=== PATIENT | female | born 1955 | race Caucasian/White ===

== ENCOUNTER → 2016-12-02 | Outpatient (CLI) | payer OTHER ==
[~2016-12-02] MED LIST: CARB1TAB2 PO; GABA-585 PO; HYDR25TA9 PO; LOSA1TAB17 PO; LOVA20TA2 PO; METF500T4 PO
--- NOTE | 2016-12-02 17:10 | RAD ---
DATE: 12/02/2016 EXAM: DIGITAL SCREEN BILAT W/CAD HISTORY: Screening study. COMPARISON: 11/22/2014 This study was interpreted with the benefit of Computerized Aided Detection (CAD). The breast parenchyma shows scattered fibroglandular densities. Breast parenchyma level B. FINDINGS: Digital MLO and CC mammograms of both breasts were obtained. Comparison study is dated 11/22/2014. The breast parenchyma is composed of scattered fibroglandular densities which can obscure a lesion on mammography (breast density code B). Benign-appearing calcifications are seen within both breasts. No spiculated mass is seen. No malignant appearing calcification is noted. No area of architectural distortion is seen. Since the previous examination there has been no significant interval change. IMPRESSION: BI-RADS Category 1, negative. There is no mammographic evidence of malignancy. Routine yearly screening mammography is recommended for follow-up. BI-RADS CATEGORY: 1 NEGATIVE RECOMMENDED FOLLOW-UP: 12M 12 MONTH FOLLOW-UP PQRS compliance statement: Patient information was entered into a reminder system with a target due date 12/02/2017 for the next mammogram. Mammography is a sensitive method for finding small breast cancers, but it does not detect them all and is not a substitute for careful clinical examination. A negative mammogram does not negate a clinically suspicious finding and should not result in delay in biopsying a clinically suspicious abnormality. "Our facility is accredited by the [employer] Mammography [employer]."
== END | disposition home or self-care (01) ==
LOC: MAMMO 08:50
PROVIDERS: ATTEND Family Medicine
DX: Z12.31 Encounter for screening mammogram for malignant neoplasm of breast (principal)
CPT/HCPCS: G0202; 77067

== ENCOUNTER → 2018-04-01 | Outpatient (CLI) | payer OTHER ==
[~2018-04-01] MED LIST changes: +HYDR-2145 PO; -HYDR25TA9 PO; -LOSA1TAB17 PO; +LOSA1TAB22 PO; +METF500T16 PO; -METF500T4 PO
--- NOTE | 2018-04-01 09:05 | KCIC ---
PQRS Compliance Statement: One or more of the following individualized dose reduction techniques were utilized for this examination: 1. Automated exposure control 2. Adjustment of the mA and/or kV according to patient size 3. Use of iterative reconstruction technique CT low-dose lung screening April 01, 2018 INDICATION: Smoker for 40+ years. Quit 5 years ago. COMPARISON: CT chest November 21, 2015. TECHNIQUE: Multiple axial CT images of the chest were obtained utilizing low-dose noncontrast technique. Coronal and sagittal reformats are provided. FINDINGS: The thyroid gland is normal in appearance. No pathologically enlarged axillary, mediastinal or hilar lymph nodes are identified within the limitations of a noncontrast examination. Heart size is within normal limits. There is no pericardial effusion. Thoracic esophagus is normal in appearance. Central groundglass opacities are identified in a perihilar distribution. Areas of groundglass attenuation measure up to 4 cm in diameter. There is mild bronchial wall thickening as may be seen with bronchitis. There are no pleural effusions. No pulmonary vascular congestion or pneumothorax. There is right apical pleural-parenchymal scarring. There is a 5 mm solid noncalcified pulmonary nodule in the subpleural right lower lobe (series 3, image 324). Findings are stable dating back to November 21, 2015 and favored represent benign etiology. Evaluation of the solid abdominal viscera is limited secondary to low dose technique and noncontrast examination. No suspicious osseous abnormality is identified. IMPRESSION: 1. Stable 5 mm solid subpleural nodule in the right lower lobe, compatible with benign etiology given two-year stability. Lung RADS category 2S. Benign findings. Recommend low-dose noncontrast chest CT in one year. 2. Groundglass opacities are identified in the perihilar distribution most just above a infectious/inflammatory pneumonitis. 3 month follow-up chest CT is recommended to ensure resolution. Electronically signed by: Cathy Mclean MD (04/01/2018 9:01 AM) [facility]
== END | disposition home or self-care (01) ==
LOC: KCIC CT 08:21
PROVIDERS: ATTEND Family Medicine
DX: Z12.2 Encounter for screening for malignant neoplasm of respiratory organs (principal); R91.1 Solitary pulmonary nodule; Z87.891 Personal history of nicotine dependence
CPT/HCPCS: G0297

== ENCOUNTER → 2018-06-29 | Outpatient (CLI) | payer OTHER ==
[~2018-06-29] MED LIST changes: +GLIM1TAB2 PO; +HYDR-3164 PO; +LOSA100T14 PO; +OMEP40CA5 PO; +ONDA4TAB7 PO; +TRAM-48 PO
--- NOTE | 2018-06-30 07:42 | RAD ---
DATE: 06/29/2018 EXAM: MAMMO GEORGE SCREENING BILATERAL HISTORY: Routine screening COMPARISON: 12/02/2016 This study was interpreted with the benefit of Computerized Aided Detection (CAD). Breast Density: SCATTERED The breast parenchyma shows scattered fibroglandular densities. Breast parenchyma level B. FINDINGS: 2-D and 3-D tomosynthesis imaging was performed in CC and MLO projections. No new or enlarging breast densities are seen. Minimal benign type calcification is present. No suspicious microcalcifications have developed. IMPRESSION: Stable mammograms without evidence of malignancy. BI-RADS CATEGORY: 2 BENIGN FINDING(S) RECOMMENDED FOLLOW-UP: 12M 12 MONTH FOLLOW-UP PQRS compliance statement: Patient information was entered into a reminder system with a target due date for the next mammogram. Mammography is a sensitive method for finding small breast cancers, but it does not detect them all and is not a substitute for careful clinical examination. A negative mammogram does not negate a clinically suspicious finding and should not result in delay in biopsying a clinically suspicious abnormality. "Our facility is accredited by the [employer] Mammography Program."
== END | disposition home or self-care (01) ==
LOC: MAMMO 14:26
PROVIDERS: ATTEND Family Medicine
DX: Z12.31 Encounter for screening mammogram for malignant neoplasm of breast (principal); R92.8 Other abnormal and inconclusive findings on diagnostic imaging of breast
CPT/HCPCS: 77063; 77067

== ENCOUNTER 2018-07-01 09:29 | Emergency (ER) | payer OTHER ==
[~2018-07-01] VITALS: Ht 180.3 cm; Wt 84.4 kg
[~2018-07-01 09:29] MED LIST changes: -GLIM1TAB2 PO; -HYDR-3164 PO; -LOSA100T14 PO; -OMEP40CA5 PO; -ONDA4TAB7 PO; -TRAM-48 PO
[2018-07-01] MEDS ORDERED: IV NORMAL SALINE 1000ML BAG 1,000 ML IV SCH (10:05)
[2018-07-01] MEDS ORDERED: METOCLOPRAMIDE HCL 10 MG/2 ML VIAL. IV ONE (10:15)
--- NOTE | 2018-07-01 10:17 | PHYS DOC ---
Past Medical History Past Medical History: COPD, Diabetes-Type II, Hypertension Past Surgical History: No Surgical History Smoking: Quit Greater Than 1 Year Additional Information: quit 6 years ago, 1 ppd hx. Alcohol Use: None Drug Use: None Adult General Chief Complaint Chief Complaint: ABDOMINAL PAIN [facility] HPI Patient is a 62 year old female who presents with complaining of nausea and vomiting and diarrhea and hurting all over. Patient complaining of nausea and one episode of vomiting and 2 episodes of diarrhea per day that started 1 week ago and hurting all over. Patient complaining of constant pain in substernal and left subaxillary area and rated his pain for over 10. Patient complaining of headache and neck pain without neck stiffness. Patient states she was seen by her primary care physician 3 days ago and treated with Zofran and acid reflux medication with improvement of vomiting but still has constant nausea and anorexia. Patient denies urinary symptoms, fever and chills, sick contact, cough and congestion, sore throat, focal neuro deficit. Patient complaining of generalized weakness and mild dizziness. Patient has history of diabetes mellitus and hypertension and states her blood sugar was 132 this morning. Patient denies history of coronary artery disease by herself or at her family. Review of Systems Review of Systems Constitutional: Denies fever or chills [] Eyes: Denies change in visual acuity, redness, or eye pain [] HENT: Denies nasal congestion or sore throat [] Respiratory: Denies cough or shortness of breath [] Cardiovascular: No additional information not addressed in HPI [] GI: Reports abdominal pain, nausea, vomiting, diarrhea [] : Denies dysuria or hematuria [] Musculoskeletal: Denies back pain or joint pain [] Integument: Denies rash or skin lesions [] Neurologic: Reports headache, denies focal weakness or sensory changes [] Endocrine: Denies polyuria or polydipsia [] All other systems were reviewed and found to be within normal limits, except as documented in this note. Current Medications Current Medications Current Medications Medications (Trade) Dose Ordered Sig/Brian Start Time Stop Time Status Last Admin Dose Admin Metoclopramide HCl (Reglan Vial) 10 mg 1X ONCE 07/01/18 10:15 07/01/18 10:16 DC 07/01/18 10:32 10 MG Sodium Chloride 1,000 ml @ 1,000 mls/hr Q1H 07/01/18 10:05 07/01/18 11:04 DC 07/01/18 10:26 1,000 MLS/HR Allergies Allergies Allergies Coded Allergies Type Severity Reaction Last Updated Verified No Known Drug Allergies 01/08/15 No Physical Exam Physical Exam Constitutional: Well developed, well nourished, mild distress, non-toxic appearance. [] HENT: Normocephalic, atraumatic, oropharynx dry, no oral exudates, nose normal. [] Eyes: PERRLA, EOMI, conjunctiva normal, no discharge. [] Neck: Normal range of motion, no tenderness, supple, no stridor, no neck stiffness or meningeal sign. [] Cardiovascular:Heart rate regular rhythm, no murmur [] Lungs & Thorax: Bilateral breath sounds clear to auscultation [] Abdomen: Bowel sounds normal, soft, no tenderness, no masses, no pulsatile masses. [] Skin: Warm, dry, no erythema, no rash. [] Back: No tenderness, no CVA tenderness. [] Extremities: No tenderness, no cyanosis, no clubbing, ROM intact, no edema. [] Neurologic: Alert and oriented X 3, normal motor function, normal sensory function, no focal deficits noted. [] Psychologic: Affect normal, judgement normal, mood normal. [] Current Patient Data Vital Signs Vital Signs Date Time Temp Pulse Resp B/P (MAP) Pulse Ox O2 Delivery O2 Flow Rate FiO2 07/01/18 14:00 74 154/70 (98) 97 Room Air 07/01/18 09:39 99.1 20 99.1 Lab Values Laboratory Tests Test 07/01/18 09:50 07/01/18 10:23 07/01/18 12:05 Glucose (Fingerstick) 132 mg/dL (70-99) H White Blood Count 7.7 x10^3/uL (4.0-11.0) Red Blood Count 4.55 x10^6/uL (3.50-5.40) Hemoglobin 13.9 g/dL (12.0-15.5) Hematocrit 41.3 % (36.0-47.0) Mean Corpuscular Volume 91 fL (79-100) Mean Corpuscular Hemoglobin 31 pg (25-35) Mean Corpuscular Hemoglobin Concent 34 g/dL (31-37) Red Cell Distribution Width 13.6 % (11.5-14.5) Platelet Count 229 x10^3/uL (140-400) Neutrophils (%) (Auto) 66 % (31-73) Lymphocytes (%) (Auto) 25 % (24-48) Monocytes (%) (Auto) 7 % (0-9) Eosinophils (%) (Auto) 2 % (0-3) Basophils (%) (Auto) 1 % (0-3) Neutrophils # (Auto) 5.1 x10^3uL (1.8-7.7) Lymphocytes # (Auto) 1.9 x10^3/uL (1.0-4.8) Monocytes # (Auto) 0.5 x10^3/uL (0.0-1.1) Eosinophils # (Auto) 0.1 x10^3/uL (0.0-0.7) Basophils # (Auto) 0.1 x10^3/uL (0.0-0.2) Sodium Level 141 mmol/L (136-145) Potassium Level 3.5 mmol/L (3.5-5.1) Chloride Level 103 mmol/L (98-107) Carbon Dioxide Level 24 mmol/L (21-32) Anion Gap 14 (6-14) Blood Urea Nitrogen 16 mg/dL (7-20) Creatinine 1.8 mg/dL (0.6-1.0) H Estimated GFR (Cockcroft-Gault) 28.7 BUN/Creatinine Ratio 9 (6-20) Glucose Level 127 mg/dL (70-99) H Calcium Level 9.3 mg/dL (8.5-10.1) Total Bilirubin 0.5 mg/dL (0.2-1.0) Aspartate Amino Transferase (AST) 30 U/L (15-37) Alanine Aminotransferase (ALT) 39 U/L (14-59) Alkaline Phosphatase 88 U/L (46-116) Creatine Kinase 40 U/L (26-192) Creatine Kinase MB (Mass) 0.8 ng/mL (0.0-3.6) Creatine Kinase MB Relative Index % (0-4) Troponin I Quantitative < 0.017 ng/mL (0.000-0.055) Total Protein 7.2 g/dL (6.4-8.2) Albumin 4.0 g/dL (3.4-5.0) Albumin/Globulin Ratio 1.3 (1.0-1.7) Lipase 62 U/L (73-393) L Urine Collection Type Void Urine Color Yellow Urine Clarity Clear Urine pH 5.0 Urine Specific Tow 1.010 Urine Protein Negative mg/dL (NEG-TRACE) Urine Glucose (UA) Negative mg/dL (NEG) Urine Ketones (Stick) Negative mg/dL (NEG) Urine Blood Negative (NEG) Urine Nitrite Negative (NEG) Urine Bilirubin Negative (NEG) Urine Urobilinogen Dipstick 0.2 mg/dL (0.2 mg/dL) Urine Leukocyte Esterase Negative (NEG) Urine RBC 0 /HPF (0-2) Urine WBC Occ /HPF (0-4) Urine Squamous Epithelial Cells Few /LPF Urine Bacteria 0 /HPF (0-FEW) Laboratory Tests 07/01/18 10:23 Laboratory Tests 07/01/18 10:23 EKG EKG EKG interpreted by me. EKG at 08 showed normal sinus rhythm at rate of 74, left luna axis, no acute ST and T-wave abnormalities. Radiology/Procedures Radiology/Procedures [facility] [address] [place] [address] IMAGING REPORT Signed PATIENT: MAXIMINO SALINAS ACCOUNT: [id number] : 1955 LOCATION: ER AGE: 62 SEX: F EXAM STATUS: REG ER ORD. PHYSICIAN: GRABIEL SOARES MD REASON: abdominal and chest pain PROCEDURE: CT ABD PEL W/ORAL CONTRST ONLY PQRS Compliance Statement: One or more of the following individualized dose reduction techniques were utilized for this examination: 1. Automated exposure control 2. Adjustment of the mA and/or kV according to patient size 3. Use of iterative reconstruction technique CT ABD PEL W/ORAL CONTRST ONLY Clinical Indication: Abdomen and chest pain. Comparison: CT abdomen and pelvis with contrast January 08, 2015. Technique: Helical CT imaging of the abdomen and pelvis is performed without IV contrast. Oral contrast is administered. Findings: Lung bases are clear. Cardiac size normal. Multiple calcified granulomas in the spleen. Cholelithiasis. Mild fatty infiltration of the liver. Prominent fat lobule in the pancreas head, stable. No peripancreatic inflammation. Stable bilateral adrenal gland hyperplasia. Atherosclerotic abdominal aorta, no aneurysm. No hydronephrosis. Exophytic left renal cyst is mildly larger. Cannot exclude a right inferior parapelvic mass or cyst with small calcification along the inferior margin, finding measures 2.3 cm. There appears to be loss of renal sinus fat in this location. For example coronal image 35. Stomach unremarkable. No small bowel obstruction. The appendix is normal. A few diverticula of the colon are seen without inflammation. No colon wall thickening is identified. No abdominal adenopathy or free fluid. Urinary bladder is not well distended. Probable myomatous uterus. Ovaries relatively symmetric. No pelvic free fluid. Degenerative arthropathy of the bilateral hips. IMPRESSION: 1. There is a small right lower pole parapelvic mass or cyst with small calcification inferiorly. Recommend renal ultrasound for further evaluation. If ultrasound is equivocal, when patient is able recommend CT or MR abdomen with and without contrast. 2. Cholelithiasis. 3. Mild fatty infiltration of the liver. 4. Mild colon diverticulosis without diverticulitis. 5. Probable myomatous uterus. Electronically signed by: Jose Angel Garland MD (07/01/2018 12:32 PM) [id number] DICTATED and SIGNED BY: JOSE ANGEL GARLAND MD DATE: 07/01/18 1232 Course & Med Decision Making Course & Med Decision Making Pertinent Labs and Imaging studies reviewed. (See chart for details) Evaluation of patient in ER showed 62-year-old female patient with complaining of episode of nausea and vomiting and diarrhea for one week with multiple other complaining of neck pain and body ache and chest pain. Patient had unremarkable physical exam. Labs was unremarkable. CT abdomen and pelvis showed cholelithiasis and small parapelvic cyst or mass. IV fluid and Zofran and felt better. Patient tolerated oral intake. Patient was about test results and is to follow-up with on-call surgeon and primary care physician. German Disclaimer German Disclaimer This electronic medical record was generated, in whole or in part, using a voice recognition dictation system. Departure Departure Impression: Primary Impression: Acute gastroenteritis Additional Impressions: Cholelithiasis Parapelvic renal cyst Uterine myoma Disposition: HOME, SELF-CARE (at 1317) Condition: IMPROVED Referrals: PK ANDUJAR MD (PCP) ANGELINA BHANDARI MD Patient Instructions: Chest Pain (Nonspecific), Cholelithiasis, Viral Gastroenteritis Additional Instructions: Drink plenty of liquids Follow-up with your primary care physician in 3-5 days for more evaluation for parapelvic cyst Return to ER if not getting better Avoid of eating greasy food Follow-up with on-call surgeon in 2 or 3 days for gallstone Scripts Ondansetron Hcl (ZOFRAN) 4 Mg Tablet 1 TAB PO PRN Q6-8HRS for nausea, #12 TAB Prov: GRABIEL SOARES MD 07/01/18 Tramadol Hcl (ULTRAM) 50 Mg Tablet 50 MG PO Q6HRS PRN for PAIN, #20 TAB 0 Refills Prov: GRABIEL SOARES MD 07/01/18 Problem Qualifiers GRABIEL SOARES MD Jul 01, 2018 10:17
[2018-07-01 10:44] LABS: BASO # 0.1 x10^3/uL (0.0-0.2); BASO % 1 % (0-3); EOS # 0.1 x10^3/uL (0.0-0.7); EOS % 2 % (0-3); HEMATOCRIT 41.3 % (36.0-47.0); HEMOGLOBIN 13.9 g/dL (12.0-15.5); LYMPH # 1.9 x10^3/uL (1.0-4.8); LYMPH % 25 % (24-48); MEAN CORPUSCULAR HEMOGLOBIN 31 pg (25-35); MEAN CORPUSCULAR HGB CONC 34 g/dL (31-37); MEAN CORPUSCULAR VOLUME 91 fL (79-100); MONO # 0.5 x10^3/uL (0.0-1.1); MONO % 7 % (0-9); NEUT # 5.1 x10^3uL (1.8-7.7); NEUT % 66 % (31-73); PLATELET COUNT 229 x10^3/uL (140-400); RED BLOOD COUNT 4.55 x10^6/uL (3.50-5.40); RED CELL DISTRIBUTION WIDTH 13.6 % (11.5-14.5); WHITE BLOOD COUNT 7.7 x10^3/uL (4.0-11.0)
[2018-07-01 10:49] LABS: CALCIUM 9.3 mg/dL (8.5-10.1); CREATININE 1.8 mg/dL (0.6-1.0); GFR 28.7; POTASSIUM 3.5 mmol/L (3.5-5.1)
[2018-07-01 10:55] LABS: ALBUMIN/GLOBULIN RATIO 1.3 (1.0-1.7); TOTAL BILIRUBIN 0.5 mg/dL (0.2-1.0); TOTAL PROTEIN 7.2 g/dL (6.4-8.2)
--- NOTE | 2018-07-01 10:56 | EKG ---
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
[2018-07-01 11:04] LABS: CREATINE KINASE 40 U/L (26-192)
--- NOTE | 2018-07-01 12:35 | RAD ---
PQRS Compliance Statement: One or more of the following individualized dose reduction techniques were utilized for this examination: 1. Automated exposure control 2. Adjustment of the mA and/or kV according to patient size 3. Use of iterative reconstruction technique CT ABD PEL W/ORAL CONTRST ONLY Clinical Indication: Abdomen and chest pain. Comparison: CT abdomen and pelvis with contrast January 08, 2015. Technique: Helical CT imaging of the abdomen and pelvis is performed without IV contrast. Oral contrast is administered. Findings: Lung bases are clear. Cardiac size normal. Multiple calcified granulomas in the spleen. Cholelithiasis. Mild fatty infiltration of the liver. Prominent fat lobule in the pancreas head, stable. No peripancreatic inflammation. Stable bilateral adrenal gland hyperplasia. Atherosclerotic abdominal aorta, no aneurysm. No hydronephrosis. Exophytic left renal cyst is mildly larger. Cannot exclude a right inferior parapelvic mass or cyst with small calcification along the inferior margin, finding measures 2.3 cm. There appears to be loss of renal sinus fat in this location. For example coronal image 35. Stomach unremarkable. No small bowel obstruction. The appendix is normal. A few diverticula of the colon are seen without inflammation. No colon wall thickening is identified. No abdominal adenopathy or free fluid. Urinary bladder is not well distended. Probable myomatous uterus. Ovaries relatively symmetric. No pelvic free fluid. Degenerative arthropathy of the bilateral hips. IMPRESSION: 1. There is a small right lower pole parapelvic mass or cyst with small calcification inferiorly. Recommend renal ultrasound for further evaluation. If ultrasound is equivocal, when patient is able recommend CT or MR abdomen with and without contrast. 2. Cholelithiasis. 3. Mild fatty infiltration of the liver. 4. Mild colon diverticulosis without diverticulitis. 5. Probable myomatous uterus. Electronically signed by: Jose Angel Garland MD (07/01/2018 12:32 PM) [id number]
[2018-07-01 12:56] LABS: BILIRUBIN,URINE NEGATIVE (NEG); CLARITY,URINE CLEAR; COLOR,URINE YELLOW; NITRITE,URINE NEGATIVE (NEG); PROTEIN,URINE NEGATIVE (NEG-TRACE); UROBILINOGEN,URINE 0.2 mg/dL (0.2 mg/dL)
[2018-07-01] MEDS ORDERED: ONDA4TAB7 PO (13:22)
[2018-07-01] MEDS ORDERED: TRAM-48 PO (13:22)
[2018-07-01 13:30] LABS: BACTERIA,URINE 0 /HPF (0-FEW); RBC,URINE 0 /HPF (0-2); WBC,URINE OCC /HPF (0-4)
[2018-07-01 13:32] LABS: SQUAMOUS EPITHELIAL CELL,UR FEW /LPF
[2018-07-01 14:00] VITALS: BP 154/70
[2018-07-15] MEDS ORDERED: LOSA100T14 PO (15:00)
[2018-07-15] MEDS ORDERED: GLIM1TAB2 PO (15:00)
[2018-07-15] MEDS ORDERED: OMEP40CA5 PO (15:00)
== END 2018-07-01 14:02 | disposition home or self-care (01) ==
LOC: ER 09:29
DX: K52.9 Noninfective gastroenteritis and colitis, unspecified (principal); K80.20 Calculus of gallbladder without cholecystitis without obstruction; N28.1 Cyst of kidney, acquired; D25.9 Leiomyoma of uterus, unspecified; R42 Dizziness and giddiness; E11.9 Type 2 diabetes mellitus without complications; I10 Essential (primary) hypertension; J44.9 Chronic obstructive pulmonary disease, unspecified; Z87.891 Personal history of nicotine dependence
CPT/HCPCS: 36415; 74176; 80053; 81001; 82553; 82962; 83690; 84484; 85025; 93005; 96361; 96374; 99284; J2765; J7030

== ENCOUNTER 2018-07-19 10:27 | Day surgery (SDC) | payer OTHER ==
[~2018-07-19] VITALS: Ht 175.3 cm; Wt 89.4 kg
[~2018-07-19 10:27] MED LIST changes: +BUPIVAC MPF-EPI 0.5%-1:200000 30 ML VIAL. ONE; +GLIM1TAB2 PO; +HYDROmorphone 2 MG/ML VIAL IV PRN; +IOHEXOL 300 MG/ML 100ML VIAL. ONE; +IV RINGERS,LACTATED 1000ML 1,000 ML IV SCH; +LIDOCAINE 1% PF 2 ML VIAL. ID PRN; +LOSA100T14 PO; +MORPHINE SULFATE 2 MG/ML VIAL. IV PRN; +OMEP40CA5 PO; +ONDA4TAB7 PO; +ONDANSETRON PF 4 MG/2 ML VIAL. IV PRN; +PROCHLORPERAZINE 10 MG/2 ML VIAL. IV PRN; +SURGICEL HEMOSTAT 4X8 EACH. ONE; +TRAM-48 PO; +fentaNYL PF VIAL 100 MCG/2 ML VIAL IV PRN
[2018-07-19] MEDS ORDERED: ONDANSETRON PF 4 MG/2 ML VIAL. ONE (10:36)
[2018-07-19] MEDS ORDERED: PROPOFOL 20 ML IV ONE (10:36)
[2018-07-19] MEDS ORDERED: FAMOTIDINE 20 MG/2 ML VIAL ONE (10:36)
[2018-07-19] MEDS ORDERED: DEXAMETHASONE SOD PHOS 20 MG/5 ML VIAL. ONE (10:36)
[2018-07-19] MEDS ORDERED: LIDOCAINE 2% PF 5 ML VIAL. ONE (10:36)
[2018-07-19] MEDS ORDERED: MIDAZOLAM HCL/PF 2 MG/2 ML VIAL. ONE (10:39)
[2018-07-19] MEDS ORDERED: fentaNYL PF VIAL 100 MCG/2 ML VIAL ONE (10:39)
[2018-07-19] MEDS ORDERED: SURGICEL HEMOSTAT 4X8 EACH. ONE (11:21)
[2018-07-19] MEDS ORDERED: GLYCOPYRROLATE 1 MG/5 ML VIAL. ONE (11:52)
[2018-07-19] MEDS ORDERED: NEOSTIGMINE METHYLSULFATE 5 MG/5 ML SYRINGE. ONE (11:53)
[2018-07-19] MEDS ORDERED: KETOROLAC 30 MG/ML INJ FOR OR. INJ ONE (11:56)
--- NOTE | 2018-07-19 12:12 | RAD ---
Intraoperative cholangiogram, 07/19/2018: HISTORY: Cholecystectomy 5 spot films from surgery are presented for review. Contrast has been injected into the cystic duct remnant. 0.23 minutes of fluoroscopy time was utilized. There is good flow contrast into the duodenum at the ampulla. No filling defect is seen in the common duct to suggest a retained calculus. The visualized intrahepatic ducts are unremarkable. No contrast extravasation is seen. IMPRESSION: No significant abnormality is detected. Electronically signed by: Bi Nettles MD (07/19/2018 12:09 PM) [facility]
--- NOTE | 2018-07-19 12:12 | PDOC4 ---
Operative Note Operative Note Operative Note: Preoperative Diagnosis: Symptomatic cholelithiasis Postoperative Diagnosis: Same Procedure: Laparoscopic cholecystectomy with intraoperative cholangiogram Surgeons: Prem Payroll Tax Specialist: Neha BENNETT Anesthesia: Gen. Estimated Blood Loss: 10 mL Specimen: Gallbladder to pathology Drains: None Complications: None Indications: The patient is a 63-year-old female who had an episode of abdominal pain consistent with biliary colic. Her evaluation identified gallstones. Surgical treatment was offered by means of a laparoscopic cholecystectomy. The risks of surgery were discussed which include bleeding, infection, bile duct injury, bile leak, pain, the potential for additional surgeries or procedures. The patient understands and would like to proceed. Description: The patient was taken to the operating room and laid supine on the operating table. General anesthesia was performed. The abdomen was prepped with ChloraPrep and draped in a standard surgical fashion. A small supraumbilical incision was made with a scalpel. The Veress needle was then inserted and a pneumoperitoneum was then created. A 5 mm trocar was then inserted and the laparoscope was introduced. In the upper midabdomen a 5 mm trocar was inserted and in the right upper quadrant two 2.3 mm mini lap graspers were inserted. The gallbladder was retracted cephalad. The cystic duct was dissected free from surrounding tissues. One clip was placed on the duct near the gallbladder junction. An opening was made in the duct and a cholangiocatheter placed within and secured with a clip. Using contrast dye and fluoroscopy an intraoperative cholangiogram was performed that appeared unremarkable. The clip and catheter were then withdrawn. Three clips were placed on the cystic duct and it was divided. The cystic artery was then identified, dissected free, doubly clipped and divided as well. The gallbladder was then mobilized away from the liver with cautery. The umbilical 5 millimeter trocar was exchanged for an 11 millimeter trocar. The gallbladder was then placed in an endoscopic bag and extracted at the umbilical trocar site. The fascia there was closed with an 0 Vicryl suture. All blood and irrigation fluid was suctioned and hemostasis was good. The remaining ports were removed and the pneumoperitoneum was relieved. The skin incisions were injected with half percent Marcaine with epinephrine, and all were closed using 4-0 Monocryl suture. Steri-Strips and dressings were then applied. The patient tolerated the procedure well and was sent to the recovery room in stable condition. At the end of the case all counts were correct. ANGELINA BHANDARI MD Jul 19, 2018 12:12
[2018-07-19] MEDS ORDERED: SEVOFLURANE 31 TO 60 MINUTES. IH ONE (12:14)
--- NOTE | 2018-07-19 12:14 | DISCH ---
DISCHARGE INSTRUCTIONS Condition on Discharge Condition on Discharge: Stable Activity After Discharge Activity Instructions for Disc: Other, see below (no lifting over 20 lbs X 2 weeks) Driving Instructions after Dis: Other, see below (no driving while taking pain meds) Diet after Discharge Diet after Discharge: Regular Wound Incision Care Wound/Incision Care: Other, see below (may remove bandaids tomorrow and shower) Follow-Up Follow up with: Dr Bhandari in 2 weeks in office, call for appt [phone] ANGELINA BHANDARI MD Jul 19, 2018 12:13
[2018-07-19] MEDS ORDERED: HYDR-3164 PO (12:58)
[2018-07-19] MEDS ORDERED: HYDROcodone/APAP 5/325MG 1 TAB TABLET PO ONE ×2 (13:00→14:15)
[2018-07-19 14:30] VITALS: BP 158/78
--- NOTE | 2018-07-20 15:06 | PATHOLOGY ---
[facility] Accession Number: [id number] . 01 Material submitted: . gallbladder - GALLBLADDER . 01 Clinical history: . Symptomatic cholelithiasis . 02 Diagnosis: Gallbladder, laparoscopic cholecystectomy: - Cholelithiasis. - Chronic cholecystitis. (M:[facility] 07/20/2018) [facility]/07/20/2018 . 02 Comment: There is no evidence of malignancy. ([facility] 07/20/2018) . 02 Electronically signed: . Rashi Pedroza MD, Pathologist NPI- [id number] . 01 Gross description: . The specimen is received in formalin, labeled "Mayer, Veronica, gallbladder", is an intact gallbladder measuring 9.7 x 3.0 x 2.2 cm with a glistening, linn-purple serosa. The lumen is filled with yellow-green viscous bile and black sludge admixed with an oval, irregular surface black-yellow calculus measuring 2.2 x 1.6 x 1.7 cm. The mucosa is linn-brown and focally effaced towards the fundus and the wall has an average thickness of 0.1 cm. No discrete masses are identified. Radiologic Technology Program Director tissue is submitted in A1. ([facility]; 07/19/2018) [facility] . 02 Pathologist provided ICD-10: K80.10 . 02 CPT . 731633 Specimen Comment: A courtesy copy of this report has been sent to Specimen Comment: [phone], . Specimen Comment: Report sent to / DR ANDUJAR Performed at: [address], [place], [place] [id number] MD Bryan Cameron MD Phone: [phone] Performed at: [address] [facility] [address] [place], [place] [id number] MD Rashi Pedroza MD Phone: [phone]
== END 2018-07-19 15:12 | disposition home or self-care (01) ==
LOC: SURG 10:27
PROVIDERS: ATTEND Surgery
DX: K80.10 Calculus of gallbladder with chronic cholecystitis without obstruction (principal); I10 Essential (primary) hypertension; J44.9 Chronic obstructive pulmonary disease, unspecified; E11.9 Type 2 diabetes mellitus without complications; E78.00 Pure hypercholesterolemia, unspecified; G25.81 Restless legs syndrome; Z98.51 Tubal ligation status; Z83.3 Family history of diabetes mellitus; Z82.3 Family history of stroke; Z82.49 Family history of ischemic heart disease and other diseases of the circulatory system; Z87.891 Personal history of nicotine dependence; Z79.84 Long term (current) use of oral hypoglycemic drugs; Z79.899 Other long term (current) drug therapy
CPT/HCPCS: 47563; 74300; 82962; 88304; A7015; J0696; J1100; J1885; J2001; J2250; J2405; J2704; J2710; J3010; J3490; J7030; Q9967

== ENCOUNTER → 2019-05-16 | Outpatient (CLI) | payer MEDICARE ==
[~2019-05-16] MED LIST changes: -BUPIVAC MPF-EPI 0.5%-1:200000 30 ML VIAL. ONE; +CONTRAST GIVEN. MC PRN; -GLIM1TAB2 PO; +GLIM1TAB7 PO; +HYDR-3164 PO; -HYDROmorphone 2 MG/ML VIAL IV PRN; +IOHEXOL 240 MG/ML 50ML VIAL. PO ONE; +IOHEXOL 300 MG/ML 100ML VIAL. IV ONE; -IOHEXOL 300 MG/ML 100ML VIAL. ONE; -IV RINGERS,LACTATED 1000ML 1,000 ML IV SCH; -LIDOCAINE 1% PF 2 ML VIAL. ID PRN; -MORPHINE SULFATE 2 MG/ML VIAL. IV PRN; +OMEP40CA45 PO; -OMEP40CA5 PO; -ONDANSETRON PF 4 MG/2 ML VIAL. IV PRN; -PROCHLORPERAZINE 10 MG/2 ML VIAL. IV PRN; -SURGICEL HEMOSTAT 4X8 EACH. ONE; -fentaNYL PF VIAL 100 MCG/2 ML VIAL IV PRN
--- NOTE | 2019-05-16 16:56 | RAD ---
CT of the abdomen and pelvis with contrast 05/16/2019 INDICATION: Abdominal pain. Suprapubic pain. COMPARISON STUDY: CT of the abdomen and pelvis June 23, 2018 TECHNIQUE: Multidetector CT imaging of the abdomen and pelvis was obtained after the administration of IV contrast. FINDINGS: No acute abnormalities involving the lung bases are identified. Mild decreased attenuation of the liver is seen diffusely. Findings most commonly reflects some degree of hepatic steatosis. The gallbladder is surgically absent, new since prior study. Evidence of prior granulomatous disease involving the spleen noted. Adrenal glands and pancreas are stable in appearance. Bilateral renal cysts again noted. Largest renal cyst is exophytic on the right measuring approximately 3.2 cm in diameter. There is a peripelvic cysts involving the right inferior kidney. A linear area of calcification noted inferiorly. This the attenuation of the cystic-appearing structures is slightly higher than would be expected for simple cyst, though both lesions demonstrated density essentially unchanged from prior noncontrast enhanced exam. There is no evidence of bowel obstruction. No definitive inflammatory change involving the bowel is identified. The distal large bowel is predominantly decompressed. The appendix is normal in appearance. The small bowel is predominantly decompressed. No free fluid or free air is seen in the abdomen or pelvis. Multifocal areas of vascular calcification noted. Impression: 1. No evidence of acute intra-abdominal abnormality or acute change from prior study. 2. Probable renal cysts as described above. Confirmatory ultrasound recommended given lack of multi phase imaging. CT DOSING PQRS STATEMENT: One or more of the following individualized dose reduction techniques were utilized for this examination: 1. Automated exposure control 2. Adjustment of the mA and/or kV according to patient size 3. Use of iterative reconstruction technique Electronically signed by: Fredo Eisenberg MD (05/16/2019 4:53 PM) [id number]
== END | disposition home or self-care (01) ==
LOC: CT 11:46
PROVIDERS: ATTEND Family Medicine
DX: N28.1 Cyst of kidney, acquired (principal); K76.0 Fatty (change of) liver, not elsewhere classified; D71 Functional disorders of polymorphonuclear neutrophils
CPT/HCPCS: 74177; Q9966; Q9967